=== PATIENT | male | born 1965 | race Caucasian/White ===

== ENCOUNTER 2017-01-04 20:11 | Emergency (ER) | payer SELFPAY ==
[2017-01-04] MEDS ORDERED: DIPH/PERTUSS(ACELL)/TETANUS VAC/PF 0.5 ML SYR (>=10YO) IM ONE (21:21)
[2017-01-04] MEDS ORDERED: DIPHENHYDRAMINE HCL 50 MG/ML VIAL IV ONE ×2 (21:21→22:46)
[2017-01-04] MEDS ORDERED: FAMOTIDINE INJ/PF 20 MG/2 ML SDV IV ONE (21:21)
[2017-01-04] MEDS ORDERED: METHYLPREDNISOLONE INJ 125 MG/2 ML SDV IV ONE (21:21)
--- NOTE | 2017-01-04 21:36 | ER Document Report ---
ED Skin Rash/Insect Bite/Abscs - General Chief Complaint: Insect Bite Stated Complaint: POSSIBLE SPIDER BITE Notes: Patient is a 51-year-old male that comes emergency department for chief complaint of suspected insect bite or sting between his fourth and fifth digits of the right hand. Patient states that he was working with to [employer] and he felt a sharp stinging sensation with burning pain shooting up his arm. He did not visualize any insect. He states EMS evaluated him shortly after and circled the area, he states that he began to have swelling of the hand and redness that was spreading almost immediately afterwards and has a result came to the emergency department. Patient reports redness and swelling to the area was also immediately after the contact. He is not up-to-date on his tetanus within 5 years. He denies any daily medications, medical history, or allergies. TRAVEL OUTSIDE OF THE [place] IN LAST 30 DAYS: No - Related Data Allergies/Adverse Reactions: No Known Allergies Allergy (Unverified 01/04/17 21:07) Past Medical History - General Information source: Patient - Social History Smoking Status: Never Smoker Drug Abuse: None Lives with: Family Family History: Reviewed & Not Pertinent - Past Medical History Cardiac Medical History: Reports: Hx Hypertension Renal/ Medical History: Denies: Hx Peritoneal Dialysis Surgical Hx: Negative - Immunizations Hx Diphtheria, Pertussis, Tetanus Vaccination: Yes Review of Systems - Review of Systems Constitutional: No symptoms reported EENT: No symptoms reported Cardiovascular: No symptoms reported Respiratory: No symptoms reported Gastrointestinal: No symptoms reported Genitourinary: No symptoms reported Male Genitourinary: No symptoms reported Musculoskeletal: See HPI Skin: See HPI Hematologic/Lymphatic: No symptoms reported Neurological/Psychological: No symptoms reported Physical Exam - Vital signs Vitals: Temp Pulse Resp BP Pulse Ox 98.9 F 93 15 154/91 H 96 01/04/17 21:08 01/04/17 21:08 01/04/17 21:08 01/04/17 21:08 01/04/17 21:08 Interpretation: Normal - General General appearance: Appears well, Alert In distress: None - HEENT Head: Normocephalic, Atraumatic Eyes: Normal Pupils: PERRL Pharynx: Normal Neck: Normal. No: Anterior cervical chain, Posterior cervical chain - Respiratory Respiratory status: No respiratory distress. No: Labored Chest status: Nontender Breath sounds: Normal. No: Decreased air movement, Stridor, Wheezing Chest palpation: Normal - Cardiovascular Rhythm: Regular Heart sounds: Normal auscultation Murmur: No - Abdominal Inspection: Normal Distension: No distension Bowel sounds: Normal Tenderness: Nontender Organomegaly: No organomegaly - Back Back: Normal, Nontender - Extremities General upper extremity: Other - Right hand with General lower extremity: Normal inspection, Nontender, Normal color, Normal ROM , Normal temperature, Normal weight bearing. No: Migel's sign - Neurological Neuro grossly intact: Yes Cognition: Normal Orientation: AAOx4 [place] Coma Scale Eye Opening: Spontaneous [place] Coma Scale Verbal: Oriented [place] Coma Scale Motor: Obeys Commands Apoorva Coma Scale Total: 15 Speech: Normal Cranial nerves: Normal Cerebellar coordination: Normal Motor strength normal: LUE, RUE, LLE, RLE Additional motor exam normals: Equal cotton bag sewer Sensory: Normal - Psychological Associated symptoms: Normal affect, Normal mood - Skin Skin Temperature: Warm Skin Moisture: Dry Skin Color: Normal Course - Re-evaluation Re-evalutation: Patient refusing tetanus update, states that "if he gets an infection with tetanus he will get treated afterwards." Patient again refused when offered. No evidence of anaphylaxis on reevaluation patient's. Remains localized swelling. Examination consistent with local histamine inflammatory response from insect sting/bites, after multiple doses of antihistamines swelling significantly reduced, and also given Solu-Medrol, will cover with antibiotic prophylaxis, continue medications at home, patient satisfied with improvement, discussed return precautions, patient states understanding and agreement. - Vital Signs Vital signs: Temp Pulse Resp BP Pulse Ox 97.4 F 79 14 124/75 95 01/05/17 00:05 01/05/17 00:05 01/05/17 00:05 01/05/17 00:05 01/05/17 00:05 Discharge - Discharge Clinical Impression: Swelling of right hand Condition: Stable Disposition: HOME, SELF-CARE Additional Instructions: Examination is consistent with local inflammatory/histamine reaction, most likely from an insect bite. Take the prednisone as prescribed, take the benadryl and Pepcid for at least 3 days, take Bactrim antibiotic to completion. Return immediately if you develop any concerning worsening symptoms such as spreading redness, fever, worsening swelling, or any other concerning symptoms. Prescriptions: Diphenhydramine HCl [Benadryl] 25 mg PO Q6 #20 capsule Famotidine [Pepcid 20 mg Tablet] 20 mg PO DAILY #14 tablet Prednisone [Deltasone 10 mg Tablet] 10 mg PO ASDIR PRN #21 tablet PRN Reason: Sulfamethoxazole/Trimethoprim [Bactrim Ds Tablet] 1 each PO BID #10 tablet
[2017-01-05 00:14] VITALS: BP 124/75
== END 2017-01-05 00:10 | disposition home or self-care (01) ==
LOC: ER 20:11
DX: M79.89 Other specified soft tissue disorders (principal)
CPT/HCPCS: 96376; 99282; 96374; 96375; J1200; J2930; S0028

== ENCOUNTER 2017-01-05 10:58 | Emergency (ER) | payer SELFPAY ==
--- NOTE | 2017-01-05 11:29 | ER Document Report ---
ED Medical Screen (RME) - General Chief Complaint: Hand Swelling Stated Complaint: RIGHT HAND PAIN/INJURY Time seen by provider: 11:25 Mode of Arrival: Ambulatory Information source: Patient Notes: 51-year-old male seen last night with a bite while he was reaching under pine- needle's to get a daffodil bulb at 6:30 PM has increased swelling past the wrist that is not pain out of proportion but it is tense and a second puncture ashley showed up between the fourth and fifth base of the fingers. Dr. CID looked at it and we suspected babysitting. TRAVEL OUTSIDE OF THE [place] IN LAST 30 DAYS: No - Related Data Allergies/Adverse Reactions: No Known Allergies Allergy (Verified 01/05/17 11:09) Past Medical History - Past Medical History Cardiac Medical History: Reports: Hx Hypertension Renal/ Medical History: Denies: Hx Peritoneal Dialysis - Immunizations Hx Diphtheria, Pertussis, Tetanus Vaccination: Yes Physical Exam - Vital signs Vitals: Temp Pulse Resp BP Pulse Ox 98.4 F 103 H 20 157/98 H 95 01/05/17 11:11 01/05/17 11:11 01/05/17 11:11 01/05/17 11:11 01/05/17 11:11 Course - Vital Signs Vital signs: Temp Pulse Resp BP Pulse Ox 98.4 F 103 H 20 157/98 H 95 01/05/17 11:11 01/05/17 11:11 01/05/17 11:11 01/05/17 11:11 01/05/17 11:11
[2017-01-05] MEDS ORDERED: DIPH/PERTUSS(ACELL)/TETANUS VAC/PF 0.5 ML SYR (>=10YO) IM ONE (11:30)
[2017-01-05 11:56] LABS: ABSOLUTE LYMPHOCYTES (AUTO) 1.2 10^3/uL (0.5-4.7); ABSOLUTE MONOCYTES (AUTO) 0.2 10^3/uL (0.1-1.4); ABSOLUTE NEUT (AUTO) 10.6 10^3/uL (1.7-8.2); BASOPHILS % (AUTO) 0.2 % (0-2); HEMATOCRIT 46.8 % (37.9-51.0); HEMOGLOBIN 15.7 g/dL (13.5-17.0); HGB HCT DIFFERENCE 0.3; LYMPHOCYTES % (AUTO) 10.2 % (13-45); MEAN CORPUSCULAR HEMOGLOBIN 28.1 pg (27.0-33.4); MEAN CORPUSCULAR HGB CONC 33.5 g/dL (32.0-36.0); MEAN CORPUSCULAR VOLUME 84 fl (80-97); MONOCYTES % (AUTO) 1.5 % (3-13); RED BLOOD COUNT 5.57 10^6/uL (4.35-5.55); RED CELL DISTRIBUTION WIDTH 13.2 % (11.5-14.0); SEGMENTED NEUTROPHILS % (AUTO) 88.1 % (42-78)
[2017-01-05 12:03] LABS: PARTIAL THROMBOPLASTIN TIME 26.9 SEC (23.5-35.8); PROTHROMBIN TIME 13.2 SEC (11.4-15.4)
[2017-01-05 12:18] LABS: ALANINE AMINOTRANSFERASE 47 U/L (21-72); ALKALINE PHOSPHATASE 119 U/L (38-126); ANION GAP 17 (5-19); ASPARTATE AMINO TRANSFERASE 34 U/L (17-59); BILIRUBIN,DIRECT 0.3 mg/dL (0.0-0.4); BILIRUBIN,TOTAL 0.6 mg/dL (0.2-1.3); BLOOD UREA NITROGEN 18 mg/dL (7-20); CALCIUM 10.1 mg/dL (8.4-10.2); CARBON DIOXIDE 21 mmol/L (22-30); CHLORIDE 106 mmol/L (98-107); CREATININE RESULT 0.91 mg/dL (0.52-1.25); GLUCOSE 136 mg/dL (75-110); POTASSIUM 4.5 mmol/L (3.6-5.0); TOTAL PROTEIN 8.2 g/dL (6.3-8.2)
[2017-01-05 13:39] LABS: PARTIAL THROMBOPLASTIN TIME 27.8 SEC (23.5-35.8)
--- NOTE | 2017-01-05 13:39 | ER Document Report ---
ED General - General Chief Complaint: Hand Swelling Stated Complaint: RIGHT HAND PAIN/INJURY Mode of Arrival: Ambulatory Information source: Patient Notes: Patient is a 51 year old male who presents with right hand swelling, warmth, and pain that started yesterday. He states he was workin on replanting his daffodils when he felt a sting between his fourth and fifth finger and then a burning sensation "like gasoline" travel up his right arm. This occurred yesterday at 6:30 PM. He was seen here last night around 2100, only one puncture wound was visible, diagnosed with possible spider bite, sent home with arm in sling, on oral antibiotics and steroids. He presents today because the pain and swelling which was localized to his hand has now spread to his wrist and up his right arm. He states when he cleaned his hand this morning, he noticed a second puncture wound which made him suspicious of a snake bite. He did not see a snake and has not seen any around his house. He is right handed. Denies any fever, chills, erythema, numbness, tingling, chest pain or SOB. TRAVEL OUTSIDE OF THE [place] IN LAST 30 DAYS: No - Related Data Allergies/Adverse Reactions: No Known Allergies Allergy (Verified 01/05/17 11:09) Home Medications: Current Home Medications Acetylcysteine [NAC 600 mg Capsule] 600 mg PO DAILY 01/05/17 [History] Ascorbate Calcium [Vitamin C] 500 mg PO DAILY 01/05/17 [History] Complete Collagen Amino Acid Complex 1 cap PO DAILY 01/05/17 [History] Wilber [Germain Sotomayor] 500 mg PO DAILY 01/05/17 [History] Holy Basil 200 Mg 200 mg PO DAILY 01/05/17 [History] Magnesium Oxide [Minor] 500 mg PO DAILY 01/05/17 [History] Multivitamin [Daily Multiple Vitamin] 1 tab PO DAILY 01/05/17 [History] No Home Medications 01/05/17 [History] [place] 3 Hemp/Fish Oil 1 cap PO DAILY 01/05/17 [History] Probiotic 15-30 1 cap PO DAILY 01/05/17 [History] Tumeric 500 Mg 500 mg PO DAILY 01/05/17 [History] Ubidecarenone [Co Q-10] 400 mg PO DAILY 01/05/17 [History] Vitamin E (Dl, Acetate) [Vitamin E 400 Unit Capsule] 400 unit PO DAILY 01/05/17 [History] Wild Oregano 250 mg PO DAILY 01/05/17 [History] Past Medical History - General Information source: Patient - Social History Smoking Status: Former Smoker Frequency of alcohol use: None Drug Abuse: None Family History: Reviewed & Not Pertinent Patient has suicidal ideation: No Patient has homicidal ideation: No - Past Medical History Cardiac Medical History: Reports: Hx Hypertension Renal/ Medical History: Denies: Hx Peritoneal Dialysis Surgical Hx: Negative - Immunizations Hx Diphtheria, Pertussis, Tetanus Vaccination: Yes Review of Systems - Review of Systems Constitutional: No symptoms reported, See HPI EENT: No symptoms reported Cardiovascular: No symptoms reported Respiratory: No symptoms reported Gastrointestinal: No symptoms reported Genitourinary: No symptoms reported Male Genitourinary: No symptoms reported Musculoskeletal: See HPI Skin: See HPI Hematologic/Lymphatic: No symptoms reported Neurological/Psychological: No symptoms reported Physical Exam - Vital signs Vitals: Temp Pulse Resp BP Pulse Ox 98.4 F 103 H 20 157/98 H 95 01/05/17 11:11 01/05/17 11:11 01/05/17 11:11 01/05/17 11:11 01/05/17 11:11 - Notes Notes: PHYSICAL EXAM: CONSTITUTIONAL: Alert and oriented, well-appearing and in no acute distress. HENT: Normocephalic, atraumatic. Oropharynx clear without edema, erythema, tonsilar exudate or malocclusion. Trachea midline. Uvula midline. Moist mucous membranes. EYES: Pupils equal round and reactive to light, EOM intact. Sclera anicteric, conjunctiva are normal. No entrapment. NECK: supple without lymphadenopathy. ROM intact. HEART: Regular rate and rhythm without murmurs. LUNGS: CTAB and equal. No wheezes, rales or rhonchi. GI: Normactive bowel sounds. Nontender, non-distended. No organomegaly. no CVAT. BACK: nontender, no paraspinous spasm, 5+/5 strengths, DTRs 2+, SLR -. EXTREMITIES: Right hand - tender to palpation along DIP, PIP and MCP joints with associated swelling. 2 superficial puncture wounds noted to dorsal surface of webbing between 4th and 5th digit without drainage or bleeding. Edema and faint ecchymosis extends from PIP joints of fingers to wrist with mild edema and ecchymosis to forearm that is tender to palpation. Cap Refill <3 seconds and distal pulses intact. All other extremities - Normal range of motion, no pitting edema. No cyanosis. Cap Refill <3 seconds. NEURO: Cranial nerves grossly intact. Normal sensory/motor exams. PSYCH: Normal mood, normal affect. SKIN: Warm and dry. Normal turgor. No rashes or lesions noted. Course - Re-evaluation Re-evalutation: 01/05/17 12:38 Patient seen and examined. Right hand - tender to palpation along DIP, PIP and MCP joints with associated swelling. 2 superficial puncture wounds noted to dorsal surface of webbing between 4th and 5th digit without drainage or bleeding. Edema and faint ecchymosis extends from PIP joints of fingers to wrist with mild edema and ecchymosis to forearm that is tender to palpation. Cap Refill <3 seconds and distal pulses intact. Mild warmth to the touch but no streaking or erythema noted at this time. Patient has no respiratory distress. Tetanus was updated, initial labs drawn - mild leukocytosis (11.9). 01/05/17 13:38 I have consulted with Dr. Forbes per [facility] guidelines who examined patient bedside, confirms suspicion of snake bite. Discussing case with Dr. River for further opinion on administration of anti-venom. 01/05/17 14:18 Dr. Forbes, attending physician confirmed to start anti-venom. [employer] Technician-Salomon ordered at this time. Patient remains stable with no respiratory distress - ordered IV fluids and IV morphine for pain. 01/05/17 16:[address] Groves - general surgeon assembly lead person who states he declines coming to evaluate patient due to wound in upper extremity. He feels the patient should be transferred. 01/05/17 1700 Consulted and discussed case with Dr. Malone (IM) and Dr. Oscar Boston (surgery ) at [facility] who suggested consulting trauma surgery before accepting. 01/05/17 17:28 Consulted and discussed case with Dr. Thiago Stringer, trauma surgery, who accepted patient for transfer. Patient updated with plan. At this time, patient reports improvement of pressure and swelling to right fingers with ROM improving. He does report mild erythema noted to anterior surface of forearm but no increase in swelling or pain to same area. No respiratory distress or chest pain noted at this time. Speaking in full sentences, alert and oriented. Crofab is still infusing. patient is stable for transfer. - Vital Signs Vital signs: Temp Pulse Resp BP Pulse Ox 98.4 F 103 H 18 145/90 H 98 01/05/17 11:11 01/05/17 11:11 01/05/17 16:45 01/05/17 16:45 01/05/17 16:45 - Laboratory Result Diagrams: 01/05/17 11:35 01/05/17 11:35 Laboratory results interpreted by me: 01/05/17 01/05/17 01/05/17 11:35 11:35 13:15 WBC 12.0 H RBC 5.57 H Seg Neutrophils % 88.1 H Lymphocytes % 10.2 L Monocytes % 1.5 L Absolute Neutrophils 10.6 H Fibrinogen 531 H Carbon Dioxide 21 L Glucose 136 H
[2017-01-05] MEDS ORDERED: NORMAL SALINE 1000 ML 1,000 ML IV ONE (13:42)
[2017-01-05] MEDS ORDERED: MORPHINE SULFATE 10 MG/ML INJ IV ONE ×2 (13:43→18:18)
[2017-01-05] MEDS ORDERED: ANTIVENIN,CROTALIDAE FAB(OVIN) INJ 1 VIAL IV ONE ×2 (14:18→15:15)
[2017-01-05 17:20] LABS: APPEARANCE,URINE CLEAR; BILIRUBIN,URINE NEGATIVE (NEGATIVE); GLUCOSE, URINE NEGATIVE (NEGATIVE); KETONES,URINE TRACE mg/dL (NEGATIVE); LEUKOCYTE ESTERASE,URINE NEGATIVE (NEGATIVE); NITRITE,URINE NEGATIVE (NEGATIVE); PROTEIN,URINE NEGATIVE (NEGATIVE); URINE SPECIFIC GRAVITY 1.013; UROBILINOGEN,URINE NEGATIVE mg/dL (<2.0)
[2017-01-05] MEDS ORDERED: DIPHENHYDRAMINE HCL 25 MG CAPSULE PO ONE (18:18)
[2017-01-05 20:20] VITALS: BP 141/85
== END 2017-01-05 20:20 | disposition short-term general hospital (02) ==
LOC: ER 10:58
DX: T63.001A Toxic effect of unspecified snake venom, accidental (unintentional), initial encounter (principal); R58 Hemorrhage, not elsewhere classified; L03.113 Cellulitis of right upper limb; I10 Essential (primary) hypertension; Z23 Encounter for immunization; Z87.891 Personal history of nicotine dependence
CPT/HCPCS: 96376; 99285; 90471; 96375; 96365; 36415; 87040; 85025; 85384; 85362; 85610; 85730; 80053; 81001; 73130; 90715; J0840; J2270; J7030